=== PATIENT | female | born 1935 | race Caucasian/White ===

== ENCOUNTER → 2016-09-07 | Outpatient (CLI) | payer OTHER, MEDICARE ==
[~2016-09-07] VITALS: Ht 165.1 cm; Wt 55.4 kg
[~2016-09-07] MED LIST: ALEVE220 MG PO; BENTYL20 MG PO; CALCIUM + VITA1 EACH PO; ESCITALOPRAM OX20 MG PO; HYDROCODON-ACE1 EAC5 PO; HYDROCODON-ACE1 EAC7 PO; HYDROCODONE-AP1 EAC6 PO; IBUPROFEN 200200 M1 PO; MELOXICAM7.5 MG PO; MUCINEX TA600 MG/TA2 PO; MULTI VITAMIN1 EACH PO; RESTORIL15 MG PO; SIMVASTATIN40 MG PO; ZOCOR 20 MG TAB20 M1 PO
--- NOTE | ~2016-09-07 | HPC ---
[facility] [address] [place] [address] PAIN MANAGEMENT CONSULTATION Name: DARREL HARTMAN Room #: REG [facility] Deisy.#: [id number] Admission: 09/07/16 Attend Phys: Ray Farfan MD Discharge: Date of : 39 Report #: [id number] THIS REPORT FOR: //name// CC: [facility] physician/PCP Humaira Farfan DATE OF SERVICE: 09/07/2016 DATE OF REGISTRATION: 09/07/2016 FOLLOWUP VISIT: For chronic low back pain and spinal stenosis. HISTORY OF PRESENT ILLNESS: The patient returns to the pain clinic today for renewal of pain medication. She is currently using anywhere from 2-4 hydrocodone tablets per day, generally 1 tablet every 6 hours while awake and 90 tablets has been enough to provide her with good relief over the course of the month. We talked about her day-to-day activities. She lives alone. She is able to drive a car, provide for her own self-care. Her next birthday will be her 82th. She has played golf within the last year or two. We had a long discussion today about golf; she was quite a golfer in her day, playing often with her who has now been gone for a few years. She does not really have anybody to play with, but would love to go out and play sometime. Not so sure, but I think that she could possibly handle that. She would have to be cautious due to her severe spinal stenosis. She does have some ample distance; however, in the most nearest spot it is 7 mm. Most of her pain is in her coccyx area and she does not have a lot of L4, L5 or S1 nerve root pain. PHYSICAL EXAMINATION: She is alert and oriented without signs of overmedication. She is pleasant, does not appear overly depressed. Blood pressure 112/68, heart rate is 70, BMI is 20.3. She is able to easily move from sitting to standing position, and walks with a steady gait. She does not appear to be at fall risk. IMPRESSION: 1. Chronic intractable low back pain related to spinal stenosis. She has an L5 anterolisthesis, which is chronic. 2. Management of high risk medication. RECOMMENDATIONS: Medications renewed under terms of our opioid agreement. [address] [address] PAIN MANAGEMENT CONSULTATION Name: DARREL HARTMAN Room #: REG [facility].#: [id number] Admission: 09/07/16 Attend Phys: Ray Farfan MD Discharge: Date of : 39 Report #: [id number] Followup visit is planned on an as needed basis or in 3 months. By: [id number] Ray Farfan MD /nt
[2016-09-07 13:59] VITALS: BP 112/68
== END ==
LOC: PAIN 07:47
DX: M48.06 Spinal stenosis, lumbar region (principal); G89.29 Other chronic pain; F17.210 Nicotine dependence, cigarettes, uncomplicated; F32.9 Major depressive disorder, single episode, unspecified

== ENCOUNTER → 2016-10-12 | Outpatient (CLI) | payer OTHER, MEDICARE ==
[~2016-10-12] VITALS: Ht 160 cm; Wt 51.7 kg
--- NOTE | ~2016-10-12 | HPC ---
[facility] [address] [place] [address] PAIN MANAGEMENT CONSULTATION Name: DARREL HARTMAN Room #: REG [facility] En[facility].#: [id number] Admission: 10/12/16 Attend Phys: Ray Farfan MD Discharge: Date of : 39 Report #: [id number] THIS REPORT FOR: //name// CC: [facility] physician/PCP Ray Farfan DATE OF SERVICE: 10/12/2016 Followup visit for chronic back pain with anterolisthesis. The patient returns to pain clinic today for medication that I had provided her for her spinal stenosis. She continues to report good relief of pain with her medication. Pain score is a tolerable 4/10 with sitting, standing or walking. She has few side effects from the medication. She has had no significant pain crises nor had she been hospitalized since her last visit. There have been no new medical conditions. PHYSICAL EXAMINATION: VITAL SIGNS: Blood pressure is 104/51, heart rate 64 and respirations 16. BMI 20.2. GENERAL: She is well groomed. MUSCULOSKELETAL: Moves easily from sitting to standing and walks without antalgic features. She has mild tenderness across her low back and positive straight leg raising that follows into her buttocks. She has improved to the standpoint of radicular symptoms, although they remain present. IMPRESSION: 1. 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 2. Management of high-risk medication. PLAN: For the moment, we will continue her medications without change. I plan to see her back in the pain clinic as needed. By: [id number] Ray Farfan MD /nt
[2016-10-12 11:11] VITALS: BP 104/51
== END ==
LOC: PAIN 06:41
DX: M43.16 Spondylolisthesis, lumbar region (principal); M54.16 Radiculopathy, lumbar region; M48.07 Spinal stenosis, lumbosacral region; F17.200 Nicotine dependence, unspecified, uncomplicated; F32.9 Major depressive disorder, single episode, unspecified

== ENCOUNTER → 2016-11-24 | Outpatient (CLI) | payer OTHER, MEDICARE ==
[~2016-11-24] VITALS: Ht 167.6 cm; Wt 47.6 kg
--- NOTE | ~2016-11-24 | S ---
[facility] [place] [address] SURGICAL PATH RPT PROCEDURE Name: LEDY HARTMAN Room #: REG [facility].#: [id number] Admission: 11/24/16 Date of : 39 Discharge: Report #: [id number] Path Case #: [id number] PATHOLOGY REPORT COLLECTION DATE: 11/24/2016 RECEIVED DATE: 11/25/2016 SUBMITTING PHYS: Dr. Juanpablo Bedoya OTHER PHYS: SPECIMEN(S) RECEIVED: A.Liver bx * * * * * * * * * * * * FINAL DIAGNOSIS: Liver, liver mass, needle core biopsy: - POSITIVE FOR MALIGNANCY; SMALL CELL CARCINOMA (PLEASE SEE COMMENT). ([facility]; 11/27/2016) COMMENT: Examination shows a small blue cell neoplasm. Based on the clinical history, multiple immunohistochemical stains are performed. 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 Co-review: Dr. Kevan Gastelum Findings are discussed with Dr. Bedoya at 10:15 a.m. on 11/27/2016. ([facility]; 11/27/2016) PATHOLOGIST: Lenora Barksdale M.D. REPORT ELECTRONICALLY SIGNED BY: Lenora Barksdale M.D. DATE/TIME: 11/27/2016 13:24 * * * * * * * * * * * * GROSS PATHOLOGY: Received in formalin labeled "Devan Ledy, liver biopsy," are multiple distinct needle cores of [place] soft tissue ranging from 0.2 to 1.3 cm in length, which are submitted entirely in cassette A1. ([facility]; 11/25/2016) [facility] [address] [place] [address] SURGICAL PATH RPT PROCEDURE Name: DEVANLEDY M Room #: REG [facility]..#: [id number] Admission: 11/24/16 Date of : 39 Discharge: Report #: [id number] Path Case #: [id number] CLINICAL HISTORY: Liver masses INITIAL CPT CODE(S): A; 02729, 85923, 60824, 88628, 55963, 59520, 05176 Professional services performed by [facility] at [address], [place] [address] Technical services performed by [facility] at [address] [place] [address], [address] [address]. Anthony Duckworth [facility] [address] [address] PHONE: [phone] DIRECTOR: David Childers M.D. * * * END OF REPORT * * *
[2016-11-24 11:45] VITALS: BP 113/51
[2016-11-24 12:22] VITALS: BP 107/63; BP 108/64
[2016-11-24 12:27] VITALS: BP 109/64
[2016-11-24 12:36] VITALS: BP 102/67
== END | disposition home or self-care (01) ==
LOC: CAT 09:14
DX: C78.7 Secondary malignant neoplasm of liver and intrahepatic bile duct (principal); C80.1 Malignant (primary) neoplasm, unspecified